=== PATIENT | male | born 1990 | race American Indian/Alaskan Native ===

== ENCOUNTER 2017-06-17 09:23 | Day surgery (SDC) | payer BC ==
[2017-06-10 13:17] VITALS: BMI 25.8
[2017-06-17] MEDS ORDERED: Midazolam 2 MG/2 ML VIAL ONE (10:11)
[2017-06-17] MEDS ORDERED: Propofol 10 mg/ml Inj (20 ML) ONE (10:11)
[2017-06-17] MEDS ORDERED: Sodium Chloride 0.9% 1,000 ML IV SCH (10:45)
[2017-06-17 11:03] VITALS: O2SAT 99
[2017-06-17 12:05] VITALS: BP 124/75; PULSE 63; RESP 18; TEMP 98
== END 2017-06-17 12:47 | disposition home or self-care (01) ==
LOC: ENDO 09:23
PROVIDERS: ATTEND Internal Medicine
DX: R19.7 Diarrhea, unspecified (principal); K64.8 Other hemorrhoids; K20.9 Esophagitis, unspecified; K29.50 Unspecified chronic gastritis without bleeding; B96.81 Helicobacter pylori [H. pylori] as the cause of diseases classified elsewhere
CPT/HCPCS: 43239; 45380; 88305; 88342; J2250; J2704; J7040 ×2